=== PATIENT | male | born 1965 | race Hispanic/Latino ===

== ENCOUNTER → 2019-03-27 | Outpatient (CLI) | payer BC ==
--- NOTE | 2019-03-27 12:24 | Diagnostic Imaging Report ---
EXAM: CHEST 2 VIEWS, PA and lateral DATE: 03/27/2019 Time stamp on exam: 10:44 AM INDICATION: Exposure to benzene COMPARISON: None FINDINGS: LINES/TUBES: None LUNGS: No consolidations or edema. PLEURA: No effusions or pneumothorax. HEART AND MEDIASTINUM: Normal size and contour. Tortuous thoracic aorta. BONES AND SOFT TISSUES: No acute findings. Minimal spurring of the lower thoracic spine. IMPRESSION: No acute thoracic abnormality. Signed by: Dr. Julio Leroy DO on 03/27/2019 12:21 PM
--- NOTE | 2019-03-27 17:10 | Diagnostic Imaging Report ---
TECHNIQUE: Transrectal ultrasound of the prostate. ^[id number] ^[id number] ^BENIGN PROSTATIC HYPERPLASIA W/UTI FINDINGS: The seminal vesicles are present and unremarkable.. The gland size measures 32.3 cubic cm. There is a prominent median lobe. The peripheral zone is homogeneous without focal nodules. The transition zone contains a few calcifications. The roof truss builder identifies a solid isoechoic lesion in the left lobe measuring 1.9 x 2.3 x 3.0 cm. This has the same echotexture as the right transition zone. IMPRESSION: Prostate hypertrophy with prominent median lobe. A potential nodule in the left transition zone cannot be excluded. Recommend further evaluation with prostate MRI. Signed by: Dr. Sandra Gomez MD on 03/27/2019 5:06 PM
== END ==
LOC: US 10:19
PROVIDERS: ATTEND Internal Medicine
DX: N40.1 Benign prostatic hyperplasia with lower urinary tract symptoms (principal); Z77.021 Contact with and (suspected) exposure to benzene
CPT/HCPCS: 71046; 76872